=== PATIENT | male | born 1935 | race Caucasian/White ===

== ENCOUNTER 2024-04-26 16:58 | Emergency (ER) | payer OTHER ==
[~2024-04-26] VITALS: Ht 182.9 cm; Wt 118.0 kg
[2024-04-26 17:47] VITALS: BP 136/79; PULSE 72; RESP 18; O2SAT 96
--- NOTE | 2024-04-26 19:00 | ED.PDOC ---
History of Present Illness HPI Comments 88 year old male presents to the ED with chief complaint of abdominal pain. Patient reports that he has been experiencing abdominal pain, weakness, and lightheadedness for the past week with associated penile pain and chest pain about an hour ago. Patient relays that he has a Francois catheter in place that has been present for a long time, however, he has been experiencing pain to his penis and his Francois catheter has been leaking. Patient states his chest pain has since resolved, but his abdominal pain has continued. Patient denies any N/V/D, dizziness, fever, chills, or dysuria. Chief Complaint: Urinary Time Seen by MD: 18:41 Reviewed Notes: Nurses Notes, Medications, Allergies Allergies: Coded Allergies: NO KNOWN ALLERGIES (Unverified , 04/26/24) Information Source: Patient Mode of Arrival: Ambulatory Severity: Moderate Timing: Days Duration: Since onset Prehospital treatment: None Past Medical History PAST MEDICAL HISTORY: CAD, CVA, DM, High Lipids, HTN, TIA Past Medical History (Other): Agent [place] exposure Surgical History (Other): Open heart surgery Family History Family History: Reviewed,noncontributory to illness Social History Smoker: Non-Smoker Alcohol: Denies ETOH Use Drugs: Denies Drug Use Lives In: Home Constitutional: reports: weakness; denies: chills, diaphoresis, fatigue, fever, malaise, sweats, others EENTM: denies: blurred vision, double vision, ear bleeding, ear discharge, ear drainage, ear pain, ear ringing, eye pain, eye redness, hearing loss, mouth pain, mouth swelling, nasal discharge, nose bleeding, nose congestion, nose pain, photophobia, tearing, throat pain, throat swelling, voice changes, others Respiratory: denies: cough, hemoptysis, orthopnea, SOB at rest, shortness of breath, SOB with excertion, stridor, wheezing, others Cardiovascular: reports: chest pain, lightheadedness; denies: dizzy spells, diaphoresis, Dyspnea on exertion, edema, irregular heart beat, left arm pain, palpitations, PND, syncope, others Gastrointestinal: reports: abdominal pain; denies: abdomen distended, blood streaked bowels, constipated, diarrhea, dysphagia, difficulty swallowing, hematemesis, melena, nausea, poor appetite, poor fluid intake, rectal bleeding, rectal pain, vomiting, others Genitourinary: reports: pain; denies: burning, dysuria, flank pain, frequency, hematuria, incontinence, penile discharge, penile sore, testicle pain, testicle swelling, urgency, others Neurological: denies: dizziness, fainting, headache, left sided numbness, left sided weakness, numbness, paresthesia, pre-existing deficit, right sided numbness, right sided weakness, seizure, speech problems, tingling, tremors, weakness, others Musculoskeletal: denies: back pain, gout, joint pain, joint swelling, muscle pain, muscle stiffness, neck pain, others Integumetry: denies: bruises, change in color, change in hair/nails, dryness, laceration, lesions, lumps, rash, wounds, others Allergic/Immunocompromised: denies: Difficulty Healing, Frequent Infections, Hives, Itching, others Hematologic/Lymphatic: denies: anemia, blood clots, easy bleeding, easy bruising, swollen glands, others Endocrine: denies: excessive hunger, excessive sweating, excessive thirst, excessive urination, flushing, intolerance to cold, intolerance to heat, unexplained weight gain, unexplained weight loss, others Psychiatric: denies: anxiety, bipolar disorder, depression, hopeless, panic disorder, schizophrenia, sleepless, suicidal, others All Other Systems: Reviewed and Negative Physical Exam General Appearance: No Apparent Distress, Normal HEENT: Normal ENT Inspection, PERRL/EOMI Neck: Full Range of Motion, Non-Tender, Normal, Normal Inspection Respiratory: Chest Non-Tender, Lungs Clear, No Accessory Muscle Use, No Respiratory Distress, Normal Breath Sounds Cardiovascular: No Edema, No JVD, No Murmur, No Gallop, Normal Peripheral Pulses, Regular Rate/Rhythm Breast Exam: Deferred Gastrointestinal: No Organomegaly, No Pulsatile Mass, Normal Bowel Sounds, Soft, Tenderness (Suprapubic tenderness) Genitalia: Other (Francois catheter in place) Pelvic: Deferred Rectal: Deferred Extremities: No calf tenderness, Normal capillary refill, Normal inspection, Normal range of motion, Non-tender, No pedal edema Musculoskeletal : Apperance: Normal Neurologic: Alert, 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 Was a procedure done?: No Differential Dx Considerations may include: uti, constipation, renal failure, bladder outlet obstruction, francois malfunction, electrolyte disorders, colitis, sbo, pyelonephritis, renal colic, acs X-Ray, Labs, Meds, VS Vital Signs Date Time Temp Pulse Resp B/P (MAP) Pulse Ox O2 Delivery O2 Flow Rate FiO2 04/26/24 17:47 98.3 72 18 136/79 (98) 96 Time of 1ST Reevaluation: 19:41 Reevaluation 1ST: Unchanged Time of 2ND Reevaluation: 20:55 Reevaluation 2ND: eloped Patient Education/Counseling: Diagnosis, Treatment, Prognosis, Need For Follow Up Family Education/Counseling: Diagnosis, Treatment, Prognosis, Need For Follow Up Additional Information I reviewed the following notes from the pt's past medical encounters: The following tests were ordered, and results were reviewed by me: (labs, EKGS, xrays, etc) Additional information was gathered from interviewing the following independent historians: (fam, other providers, EMT) I reviewed and agreed with the following test results read by other providers: (xray, CT, US) I discussed treatments and results with medical personnel and: (consultants, fam, etc) i informed pt to wait as he would likely be admitted, when i assessed him. however, upon attempt to update pt, he had eloped Departure 1 Departure Time of Disposition: 20:56 Impression: Primary Impression: Malfunction of Francois catheter Qualified Codes: T83.011A - Breakdown (mechanical) of indwelling urethral catheter, initial encounter Additional Impressions: Abdominal pain Qualified Codes: R10.30 - Lower abdominal pain, unspecified Weakness Disposition: 07 LEFT AWOL/ELOPED Condition: Other (unknown) Critical Care Note Critical Care Time?: No Stability Stability form required: No Heart Score Heart Score: Heart Score Response (Comments) Value History N/A 0 EKG N/A 0 Age N/A 0 Risk Factors N/A 0 Troponin N/A 0 Total 0 I personally scribed for CARLOS GAN MD ([email or web address]) on 04/26/24 at 19:00. Electronically submitted by João Oliver ([email or web address]). CARLOS GAN MD Apr 26, 2024 19:00
[2024-04-26] MEDS ORDERED: fentaNYL CITRATE 100 MCG/2 ML VL IM ONE (19:30)
== END 2024-04-26 20:57 | disposition left against medical advice (07) ==
LOC: ER 16:58
DX: T83.098A Other mechanical complication of other urinary catheter, initial encounter (principal); R10.9 Unspecified abdominal pain; R53.1 Weakness
CPT/HCPCS: 99291

== ENCOUNTER 2024-05-27 05:33 | Inpatient (IN) | payer OTHER ==
[~2024-05-27] VITALS: Ht 182.9 cm; Wt 67.7 kg
--- NOTE | 2024-05-27 05:57 | ED.PDOC ---
HPI Comments 88-year-old male brought in by EMS, transferred from [facility] for non STEMI and urinary tract infection. Patient presented to [facility] complaining of generalized weakness and chest tightness. Cardiac workup showed elevated troponins and a urinary tract infection. Patient has a history of CAD status post CABG, and is followed at [facility]. Guitar Repair Technician at [facility] felt patient might require cardiac catheterization lab services, which they do not have. Patient was transferred here for Cardiology evaluation. On arrival, patient denies any chest pain, shortness a breath or other symptoms. Time Seen by MD: 05:36 Allergies: Coded Allergies: Codeine (Verified Allergy, Unknown, 05/27/24) Metformin (Verified Allergy, Unknown, 05/27/24) Past Medical History PAST MEDICAL HISTORY: CAD, CVA, DM, High Lipids, HTN, TIA Surgical History: Appendectomy, CABG Family History Family History: Reviewed,noncontributory to illness Social History Smoker: Non-Smoker Alcohol: Denies ETOH Use Drugs: Denies Drug Use Lives In: Home All Other Systems: Reviewed and Negative (Comprehensive systems review obtained and negative except for what is stated in the HPI.) Physical Exam General Appearance: No Apparent Distress HEENT: Other (Unremarkable) Neck: Full Range of Motion, Normal Inspection Respiratory: Lungs Clear, No Accessory Muscle Use, No Respiratory Distress, Normal Breath Sounds Cardiovascular: No Edema, No JVD, Regular Rate/Rhythm Breast Exam: Deferred Gastrointestinal: Non Tender, Soft Genitalia: Deferred Pelvic: Deferred Rectal: Deferred Extremities: Normal inspection, Normal range of motion, Non-tender, No pedal edema Neurologic: Alert (Oriented x4), Normal Affect, Normal Mood, Other (Moves all extremities with adequate strength and tone. No gross focal deficit.) Cerebellar Function: NOT DONE Reflexes: NOT DONE Skin: Dry, Normal Color, Warm Lymphatic: NOT DONE EKG EKG : Comments Sinus tach, rate 114, normal AL interval, QRS prolonged at 125, QTC prolonged at 499, left axis deviation, right bundle-branch block and left anterior fascicular block, upsloping ST elevation in inferior leads, anteroseptal T inversion with ST depression and other nonspecific T changes. No significant change as compared to prior EKG performed at [facility] Was a procedure done? Was a procedure done?: No CP Differential Dx Differential Diagnosis: [place], Pulmonary Embolus Differential Diagnosis: CHF Differential Diagnosis: Angina, Chest Wall Pain, Pneumonia X-Ray, Labs, Meds, VS Vital Signs Date Time Temp Pulse Resp B/P (MAP) Pulse Ox O2 Delivery O2 Flow Rate FiO2 05/27/24 05:43 97.6 114 18 152/81 (104) 99 05/27/24 05:38 114 Current Medications Medications (Trade) Dose Ordered Sig/Ok Route Start Time Stop Time Status Last Admin Sodium Chloride 1,000 ml @ 1,000 mls/hr Q1H ONCE IV 05/27/24 06:00 05/27/24 06:59 05/27/24 06:36 Ceftriaxone Sodium 50 ml @ 100 mls/hr ONCE ONCE IV 05/27/24 06:00 05/27/24 06:29 DC 05/27/24 06:37 X-Ray, Labs, Meds, VS Comment 88-year-old male with a history of CAD status post CABG, diabetes, hypertension, hyperlipidemia, CKD and CVA transfer from [facility] with a complaint of generalized weakness and chest tightness, found to have a UTI and elevated troponins consistent with non STEMI. Vitals remarkable for heart rate 114 Exam unremarkable except for tachycardia CBC, basic metabolic panel, lactate, UA, BNP and troponins pending Patient was treated with aspirin 325 mg p.o., a 500 cc normal saline IV bolus, and Rocephin 1 g IV at [facility]. Patient treated with the following in our ED: I discussed the case with Dr. Alberts on-call for STEMI. He reviewed the EKG from [facility], as well as our EKG. He did not feel that the current case represents a STEMI, and recommended medical management. 1 L 0.9 normal saline IV bolus, Rocephin 1 g IV Plan is to admit the patient for serial troponins and Cardiology evaluation, as well as IV antibiotics. Time of 1ST Reevaluation: 05:55 Reevaluation 1ST: Unchanged Patient Education/Counseling: Diagnosis, Treatment Family Education/Counseling: No Family Present Departure 1 Departure Time of Disposition: 05:55 Impression: Primary Impression: NSTEMI (non-ST elevated myocardial infarction) Additional Impression: UTI (urinary tract infection) Qualified Codes: N39.0 - Urinary tract infection, site not specified Disposition: 09 ADMITTED INPATIENT Admit to: Tele Condition: Guarded Critical Care Note Critical Care Time?: No Stability Stability form required: No Heart Score Heart Score: Heart Score Response (Comments) Value History Slightly Suspicious [address]-Deviation 2 Age >65 2 Risk Factors >3 or Hx ASHD 2 Troponin 1-2 x's Normal limit 1 Total 7 MARIAH BEASLEY MD May 27, 2024 05:56
--- NOTE | 2024-05-27 06:16 | DVH ---
CHEST RADIOGRAPH Indication: Nstemi Technique: Single frontal view of the chest was obtained Comparison: None FINDINGS: Lines and Tubes: None Lungs: Right apical density. 1.6 cm nodular density in the left midlung. Pleura: No effusion. Left-sided skin fold. No pneumothorax. Cardiomediastinal contours: Unremarkable Bones: No acute osseous abnormality. IMPRESSION: 1. Right apical density which consolidation or mass are not excluded. 1.6 cm left mid lung zone nodul ar density. Noncontrast chest CT recommended for further evaluation.
[2024-05-27] MEDS: SODIUM CHLORIDE 0.9% 1,000 ML IV ONE (06:36)
[2024-05-27] MEDS: cefTRIAXone 1GM/50ML D5W 50 ML IV ONE (06:37)
--- NOTE | 2024-05-27 07:12 | ECG ---
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
[2024-05-27 08:07] LABS: Urine Bacteria MANY /hpf (None Seen); Urine Blood 3+ /uL (Negative); Urine Protein, UAD 2+ (Negative); Urine Specific Gravity 1.019 (1.001-1.035); Urine Squamous Epithelial Cell None Seen /hpf (<5); Urine Urobilinogen Normal (Negative); Urine WBC 2576 /hpf (0 - 3); Urine WBC Clumps PRESENT /hpf (None Seen); Urine pH 5.5 (5.0-9.0)
[2024-05-27 08:09] LABS: Urine Clarity Cloudy (Clear); Urine Color Red (Yellow)
[2024-05-27 08:13] LABS: Chloride 103 mmol/L (98-107); Potassium 4.3 mmol/L (3.5-5.1); Sodium 137 mmol/L (136-145)
[2024-05-27 08:14] LABS: Anion Gap 10 (5-15); Carbon Dioxide 24 mmol/L (20-31)
[2024-05-27 08:15] LABS: Calcium 9.6 mg/dL (8.7-10.4)
[2024-05-27 08:20] LABS: BUN/Creatinine Ratio 19.1 (10.0-20.0)
[2024-05-27 08:26] LABS: Blood Urea Nitrogen 33 mg/dL (9-23); Glucose 282 mg/dL (74-106); Lactic Acid w/Reflex 2.3 mmol/L (0.4-2.0)
[2024-05-27 08:30] LABS: Basophils # (auto) 0 10 ^3/uL (0-0.2); Basophils % (auto) 0.1 % (0.0-2.0); Eosinophils # (auto) 0 10 ^3/uL (0-0.8); Hematocrit 42.2 % (41.0-53.0); Hemoglobin 14.3 g/dL (13.5-17.5); Lymphocytes # (auto) 1.6 10 ^3/uL (0.4-5.4); Lymphocytes % (auto) 10.8 % (10.0-50.0); Mean Corpuscular Hemoglobin 31.1 pg (28.0-32.0); Mean Corpuscular Hgb Conc. 33.9 g/dL (32.0-36.0); Mean Corpuscular Volume 91.8 fL (80.0-100.0); Monocytes # (auto) 1.2 10 ^3/uL (0-1.3); Monocytes % (auto) 8.5 % (0.0-12.0); Neutrophils # (auto) 11.6 10 ^3/uL (1.6-8.6); Neutrophils % (auto) 80.6 % (37.0-80.0); Platelet Count (auto) 336 10^3/uL (140-450); Red Cell Distribution Width 13.1 % (11.8-14.3); White Blood Cell 14.4 10^3/uL (4.4-10.8)
[2024-05-27 09:07] VITALS: PULSE 92; RESP 18; O2SAT 97
[2024-05-27 13:42] LABS: Cholesterol 161 mg/dL (< 200)
[2024-05-27 13:46] LABS: HDL Cholesterol 30 mg/dL (40-59); LDL Cholesterol 101 mg/dL (< 100); Triglycerides 178 mg/dL (< 150)
[2024-05-27 13:53] LABS: Amphetamine Screen, Urine Neg (NEGATIVE); Barbiturate Scree,Urine Neg (NEGATIVE); Benzodiazephine Screen, Urine Neg (NEGATIVE); Cannabinoid Screen, Urine Neg (NEGATIVE); Cocaine Screen, Urine Neg (NEGATIVE); Opiate Scree,Urine Neg (NEGATIVE); Phencyclidine Screen, Urine Neg (NEGATIVE)
--- NOTE | 2024-05-27 13:53 | DVH ---
Procedure: CT CHEST WITHOUT CONTRAST Reason for study/Clinical History: nodule Comparison Study: None available at time of dictation. Exam Date: 05/27/2024 01:14 PM TECHNIQUE: Multidetector CT of the chest was performed from the lung apices to the upper abdomen with out the use of intravenous contract. Axial, coronal and sagittal multiplanar reformats were performed . Radiation Dose Information: CT Dose: CTDI volume is 12.49 mGy. Dose-length product is 423.13 mGy*cm The dose indicators for CT are the volume Computed Tomography (CT) Dose Index (CTDIvol) and the Dose Length Product (DLP), and are measured in units of mGy and mGy-cm, respectively. These indicators are not patient dose, but values generated from the CT scanner acquisition factors. The report includes radiation exposure data for exposures received during this examination. FINDINGS: Lower neck: Normal thyroid. Lungs: No focal consolidation, pleural effusion or pneumothorax. Heart/Vascular Structures: Cardiomegaly. Coronary artery calcifications. Vascular calcifications of t he aorta. Ectasia of the ascending thoracic aorta measures 4.7 cm. Lymph Nodes: No adenopathy Pleura: No pleural effusion or significant pneumothorax. Musculoskeletal: No acute osseous abnormality. Median sternotomy. Soft tissues: Normal. Upper abdomen: Limited portions of the upper abdomen are unremarkable. IMPRESSION: No acute intrathoracic abnormality. Radiation optimization: All CT scans at this facility use at least one of these dose optimization caridad hniques: automated exposure control mA and/or kV adjustment per patient size (includes targeted exam s where dose is matched to clinical indication) or iterative reconstruction.
[2024-05-27] MEDS ORDERED: DEXTROSE (50%) 50ML SYRG IV PRN (14:15)
[2024-05-27] MEDS ORDERED: NITROGLYCERIN 0.4 MG SL TAB SL PRN (14:15)
--- NOTE | 2024-05-27 14:24 | DVHHP2 ---
History of Present Illness Reason for Visit: Chest pain and weakness History of Present Illness Ben Mack is an 88-year-old male with past medical history of CAD status post CABG couple months ago at [facility] per patient reports, diabetes, CKD 3, and coronary stent who presents to the ED as a transfer from [place] for weakness, elevated troponins, NSTEMI, sepsis, and chest pain. Patient reports that he uses oxygen on and off at home. Patient also reports that he has no medications that he takes. Patient also reports that he had stents placed at [facility] couple of months ago but is not taking any anti coags. Patient currently chest pain at this time, denies shortness of breath, fever, chills, abdominal pain, nausea, vomiting, diarrhea, lightheadedness, and dizziness. Patient also denies using any DME for ambulation. Cardiovascular: CAD Renal/: Chronic renal failure Endocrine: Diabetes Past Surgical History: CABG Family History: Other (Per patient both parents unknown disease) Smoke: No ALCOHOL: none Drugs: None Lives: with Family Domestic Violence: Neg Review of Systems Constitutional: Yes: Weakness; No: Fever, Chills, Sweats, Malaise, Other Eyes: No: Pain, Vision change, Conjunctivae inflammation, Eyelid inflammation, Other, Redness ENT: No: Ear pain, Ear discharge, Nose pain, Nose discharge, Nose congestion, Mouth pain, Mouth swelling, Throat pain, Throat swelling, Other Respiratory: No: Cough, Dry, Shortness of breath, SOB with excertion, Wheezing, Hemoptysis, Pleuritic Pain, Sputum, Wheezing, Other Cardiovascular: Chest Pain; No: Palpitations, Orthopnea, Paroxysmal Noc. Dy spnea, Edema, Lt Headedness, Other Gastrointestinal: No: Nausea, Vomiting, Abdominal Pain, Diarrhea, Constipation, Melena, Hematochezia, Other Genitourinary: No Dysuria, No Frequency, No Incontinence, No Hematuria, No Retention, No Other Musculoskeletal: No: other, neck pain, shoulder pain, arm pain, back pain, hand pain, leg pain, foot pain Skin: No: Rash, Lesions, Jaundice, Bruising, Other Neurological: No: Weakness, Numbness, Incoordination, Change in speech, Confusion, Seizures, Other Allergies: Coded Allergies: Codeine (Verified Allergy, Unknown, 05/27/24) Metformin (Verified Allergy, Unknown, 05/27/24) Exam Vital Signs Vital Signs Date Time Temp Pulse Resp B/P (MAP) Pulse Ox O2 Delivery O2 Flow Rate FiO2 05/27/24 13:28 80 18 148/96 (113) 98 05/27/24 09:07 Room Air* 2 N/A Nasal Cannula* 05/27/24 08:16 98.1 98.1 General Appearance: Alert, Oriented X3, Cooperative, No acute distress HEENT: Atraumatic, PERRLA, EOMI, Mucous membr. moist/pink Respiratory: Clear to auscultation, Normal air movement Cardiovascular: Regular rate, Normal S1, Normal S2, No murmurs Abdominal: Normal bowel sounds, Soft, No tenderness, No hepatospenomegaly, No masses Extremities: No clubbing, No cyanosis, No edema, Normal pulses, No tenderness/swelling Skin: No rashes, No breakdown, No significant lesion Neuro: Normal speech, Normal tone, Sensation intact Psych/Mental Status: Mental status NL, Mood NL Labs/Xrays Labs Test 05/27/24 09:55 05/27/24 06:20 05/27/24 06:03 Range/Units Lactic Acid Level 1.4 0.4-2.0 mmol/L Troponin I High Sensitivity 89 *H </=54 ng/L White Blood Count 14.4 H 4.4-10.8 10^3/uL Red Blood Count 4.60 4.5-5.90 10^6/uL Hemoglobin 14.3 13.5-17.5 g/dL Hematocrit 42.2 41.0-53.0 % Mean Corpuscular Volume 91.8 80.0-100.0 fL Mean Corpuscular Hemoglobin 31.1 28.0-32.0 pg Mean Corpuscular Hemoglobin Concent 33.9 32.0-36.0 g/dL Red Cell Distribution Width 13.1 11.8-14.3 % Platelet Count 336 140-450 10^3/uL Mean Platelet Volume 7.5 6.9-10.8 fL Neutrophils (%) (Auto) 80.6 H 37.0-80.0 % Lymphocytes (%) (Auto) 10.8 10.0-50.0 % Monocytes (%) (Auto) 8.5 0.0-12.0 % Eosinophils (%) (Auto) 0.0 0.0-7.0 % Basophils (%) (Auto) 0.1 0.0-2.0 % Neutrophils # (Auto) 11.6 H 1.6-8.6 10 ^3/uL Lymphocytes # (Auto) 1.6 0.4-5.4 10 ^3/uL Monocytes # (Auto) 1.2 0-1.3 10 ^3/uL Eosinophils # (Auto) 0 0-0.8 10 ^3/uL Basophils # (Auto) 0 0-0.2 10 ^3/uL Nucleated Red Blood Cells 0.0 % Sodium Level 137 136-145 mmol/L Potassium Level 4.3 3.5-5.1 mmol/L Chloride Level 103 98-107 mmol/L Carbon Dioxide Level 24 20-31 mmol/L Anion Gap 10 5-15 Blood Urea Nitrogen 33 H 9-23 mg/dL Creatinine 1.73 H 0.700-1.30 mg/dL Glomerular Filtration Rate Calc 38 >90 mL/min BUN/Creatinine Ratio 19.1 10.0-20.0 Serum Glucose 282 H 74-106 mg/dL Calcium Level 9.6 8.7-10.4 mg/dL B-Type Natriuretic Peptide 101.66 0-100 pg/mL Triglycerides Level 178 H < 150 mg/dL Cholesterol Level 161 < 200 mg/dL LDL Cholesterol 101 H < 100 mg/dL HDL Cholesterol 30 L 40-59 mg/dL Urine Color Red H Yellow Urine Clarity Cloudy H Clear Urine pH 5.5 5.0-9.0 Urine Specific [place] 1.019 1.001-1.035 Urine Protein 2+ H Negative Urine Ketones Negative Negative Urine Blood 3+ H Negative /uL Urine Nitrite Negative Negative Urine Bilirubin Negative Negative Urine Urobilinogen Normal Negative mg/dL Urine Leukocyte Esterase 3+ Negative /uL Urine RBC 2110 0 - 3 /hpf Urine WBC 2576 0 - 3 /hpf Urine WBC Clumps Present None Seen /hpf Urine Squamous Epithelial Cells None seen <5 /hpf Urine Bacteria Many H None Seen /hpf Urine Glucose Trace Normal mg/dL Urine Opiates Screen Neg NEGATIVE Urine Fentanyl Screen Neg NEGATIVE Urine Barbiturates Screen Neg NEGATIVE Urine Phencyclidine Screen Neg NEGATIVE Urine Amphetamines Screen Neg NEGATIVE Urine Benzodiazepines Screen Neg NEGATIVE Urine Cocaine Screen Neg NEGATIVE Urine Cannabinoids Screen Neg NEGATIVE Procedure: CT CHEST WITHOUT CONTRAST Reason for study/Clinical History: nodule Comparison Study: None available at time of dictation. Exam Date: 05/27/2024 01:14 PM TECHNIQUE: Multidetector CT of the chest was performed from the lung apices to the upper abdomen without the use of intravenous contract. Axial, coronal and sagittal multiplanar reformats were performed. Radiation Dose Information: CT Dose: CTDI volume is 12.49 mGy. Dose-length product is 423.13 mGy*cm The dose indicators for CT are the volume Computed Tomography (CT) Dose Index (CTDIvol) and the Dose Length Product (DLP), and are measured in units of mGy and mGy-cm, respectively. These indicators are not patient dose, but values generated from the CT scanner acquisition factors. The report includes radiation exposure data for exposures received during this examination. FINDINGS: Lower neck: Normal thyroid. Lungs: No focal consolidation, pleural effusion or pneumothorax. Heart/Vascular Structures: Cardiomegaly. Coronary artery calcifications. Vascular calcifications of the aorta. Ectasia of the ascending thoracic aorta measures 4.7 cm. Lymph Nodes: No adenopathy Pleura: No pleural effusion or significant pneumothorax. Musculoskeletal: No acute osseous abnormality. Median sternotomy. Soft tissues: Normal. Upper abdomen: Limited portions of the upper abdomen are unremarkable. IMPRESSION: No acute intrathoracic abnormality. CHEST RADIOGRAPH Indication: Nstemi Technique: Single frontal view of the chest was obtained Comparison: None FINDINGS: Lines and Tubes: None Lungs: Right apical density. 1.6 cm nodular density in the left midlung. Pleura: No effusion. Left-sided skin fold. No pneumothorax. Cardiomediastinal contours: Unremarkable Bones: No acute osseous abnormality. IMPRESSION: 1. Right apical density which consolidation or mass are not excluded. 1.6 cm left mid lung zone nodular density. Noncontrast chest CT recommended for further evaluation. Assessment/Plan Assessment/Plan Assessment/Plan: Atypical chest pain r/o ACS Coronary stent-patient reports placed in at [facility] couple of months ago Leukocytosis likely secondary to sepsis UTI ACS protocol Aspirin Statin [place] UA Chest x-ray Pat catheterization IV antibiotics-ceftriaxone NS Troponin Blood cultures Lactic acid EKG BNP Echo TSH Lipid UDS Labs A.m. labs CT chest noted Cardiology consult - recent stent Right apical density which consolidation or mass are not excluded. 1.6 cm left mid lung zone nodular density. Follow up outpatient with PCP Diabetes uncontrolled Hemoglobin A1c ISS and Accu-Cheks FEN/PPX cardiac diet IV fluids DVT prophylaxis-Lovenox PUD prophylaxis-not indicated no history of GERD or GI bleed Patient reports no home medications to reconcile discussed plan of care with patient and nurse Admit to tele Plan discussed with: Patient My Orders Orders - LORRIE BHAT Procedure Category Date Status Time Echo 2d Mode Cardiac US 05/27/24 Logged DOP 12:50 Thyroid Stimulating LAB 05/27/24 In Process Hormone 12:[address] 05/27/24 Resulted 13:07 Date of Service: May 27, 2024 Billing Provider: LORRIE BHAT Common Visit Codes: [id number] INP/OBS CARE (HIGH) LORRIE BHAT May 27, 2024 14:24
[2024-05-27] MEDS: ASPirin 81 mg TAB PO SCH (14:27)
[2024-05-27] MEDS: SODIUM CHLORIDE 0.9% 1,000 ML IV SCH (14:29)
[2024-05-27] MEDS: ACCU-CHEK COMFORT CURVE STRIP VI SCH (17:11)
[2024-05-27] MEDS: InsuLIN REG 1unit/0.01ml Soln (100units/ml) SC SCH (17:12)
[2024-05-27 19:20] VITALS: PULSE 103; RESP 17; O2SAT 98
--- NOTE | 2024-05-27 19:45 | DVHSR ---
APPROVED REPORT EXAM: LIMITED Two-dimensional and M-mode echocardiogram with Doppler and color Doppler. Blood Pressure: 126/78 mmHg INDICATION Chest Pain RISK FACTORS Height: 6'0, Weight: 170 DIMENSIONS LVDd3.6 (3.8-5.7cm)LA (2D) (1.9-4.0cm)Aortic Root3.6 (2.0-3.7cm) LVDs2.6 (2.5-4.0cm)LA (MM) (1.9-4.0cm)Aortic Cusp Exc1.6 (1.5-2.0cm) EF (%) 55.0 (55-70%)Rt. Atrium (1.9-4.0cm)Asc. 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
[2024-05-27] MEDS: MORPHINE SULFATE INJ 2 MG/ml SYRG IV PRN (19:58)
[2024-05-27] MEDS: ONDANSETRON HCL 4 MG/2 ML VIAL IV PRN (19:59)
[2024-05-27] MEDS: ATORVASTATIN 20 MG TAB PO SCH (22:00)
[2024-05-27] MEDS: ACETAMINOPHEN 325 MG TAB PO PRN (22:25)
[2024-05-28] MEDS: NITROGLYCERIN 0.4 MG SL TAB SL PRN ×2 (00:01→20:03)
[2024-05-28 04:20] LABS: Basophils # (auto) 0 10 ^3/uL (0-0.2); Basophils % (auto) 0.1 % (0.0-2.0); Eosinophils # (auto) 0 10 ^3/uL (0-0.8); Eosinophils % (auto) 0.3 % (0.0-7.0); Hematocrit 37.6 % (41.0-53.0); Hemoglobin 12.9 g/dL (13.5-17.5); Lymphocytes # (auto) 2.5 10 ^3/uL (0.4-5.4); Mean Corpuscular Hemoglobin 31.3 pg (28.0-32.0); Mean Corpuscular Hgb Conc. 34.2 g/dL (32.0-36.0); Mean Corpuscular Volume 91.6 fL (80.0-100.0); Monocytes # (auto) 1.4 10 ^3/uL (0-1.3); Monocytes % (auto) 9.9 % (0.0-12.0); Neutrophils # (auto) 9.9 10 ^3/uL (1.6-8.6); Neutrophils % (auto) 71.7 % (37.0-80.0); Platelet Count (auto) 287 10^3/uL (140-450); Red Cell Distribution Width 12.7 % (11.8-14.3); White Blood Cell 13.9 10^3/uL (4.4-10.8)
[2024-05-28 04:47] LABS: Alanine Aminotransferase < 9 U/L (7-40); Albumin 3.3 g/dL (3.2-4.8); Alkaline Phosphatase 84 U/L (46-116); Anion Gap 6 (5-15); Aspartate Aminotransferase 11 U/L (13-40); BUN/Creatinine Ratio 18.2 (10.0-20.0); Blood Urea Nitrogen 26 mg/dL (9-23); Calcium 8.2 mg/dL (8.7-10.4); Carbon Dioxide 27 mmol/L (20-31); Chloride 107 mmol/L (98-107); Glucose 155 mg/dL (74-106); Potassium 3.4 mmol/L (3.5-5.1); Sodium 140 mmol/L (136-145)
[2024-05-28 04:48] LABS: Total Protein 6.2 g/dL (5.7-8.2)
--- NOTE | 2024-05-28 05:45 | DVH ---
CHEST RADIOGRAPH Indication: CHEST PAIN Technique: Single frontal view of the chest was obtained Comparison: XY CHEST PORTABLE on DOS: 05/27/24 IMPRESSION: Heart appears normal in size. The aorta appears tortuous. There are median sternotomy wires. Nodular densities in the left lung are redemonstrated, possibly granulomas. The lungs appear clear without focal airspace opacity, effusion, or pneumothorax
[2024-05-28 07:35] VITALS: PULSE 96; RESP 16; O2SAT 99
[2024-05-28] MEDS: cefTRIAXone 1GM/50ML D5W 50 ML IV SCH (10:25)
[2024-05-28] MEDS: SODIUM CHLORIDE 0.9% 500 ML IV ONE (12:30)
[2024-05-28] MEDS: IOHEXOL 350 MG/ML 100ML IJ ONE (12:37)
--- NOTE | 2024-05-28 13:20 | DVH ---
History: ro pe Comparison: None TECHNIQUE: Using a slice CT scanner volumetric data acquisition of chest, abdomen and pelvis was obta ined following intravenous administration of intravenous 100 ml contrast without any reported adverse effects. Axial images were reconstructed and additional sagittal and coronal images were reformatted . 3D/MIP images were performed and reviewed for reporting. Radiation dose Information: CT Dose: CTDI volume is 8.36 mGy. Dose-length product is 266.99 mGy*cm Findings: Normal appearance to the pulmonary arteries. No pulmonary emboli. Ectasia of the ascending aorta with vascular calcification. No aortic dissection. No consolidation. No pleural effusions. Mild COPD. Nor mal heart size. 1. Impression: 2. No pulmonary emboli 3. No aortic dissection 4. Ectasia of the ascending aorta without dissection. 5. No consolidation.
[2024-05-28 15:20] LABS: Rapid Influenza A Negative (Negative); Rapid Influenza B Negative (Negative)
[2024-05-28 15:21] LABS: COVID19 ANTIGEN SOFIA FIA NEGATIVE (NEGATIVE)
[2024-05-28 15:23] VITALS: BP 122/81; PULSE 84; RESP 18; TEMP 97.6; O2SAT 98
[2024-05-28] MEDS ORDERED: IPRATROPIUM BROM 0.5 MG/2.5ML INH SOL NEB PRN (15:45)
[2024-05-28] MEDS ORDERED: ALBUTEROL SULF 2.5 MG/0.5ML(0.5%) NEB SOLN NEB PRN (15:45)
--- NOTE | 2024-05-28 15:45 | DVHPN2 ---
Assessment/Plan Assessment/Plan Progress note Subjective 88 M with CAD s/p CABG (years) and BRAULIO (months) CKD admitted after transfer from [facility] for NSTEMI. Seen by me today during rounds Increased WOB w/o desat, tachy, on 2LNC. no active CP Objective Physical exam alert oriented x3 on nasal canula s1 s2 RRR systolic murmur mild rhonchi abdomen soft nontender trace LE edema Assessment and plan acute on chronic hypoxic respiratory failure PNA GN vs GP? viral? CAD s/p CABG and BRAULIO not sure when Possible baseline mild dementia COPD e on home o2 type 2 [place] 2/2 PNA CKD 3 anemia chronic disease chronic diastolic heart failure PH? r/o PE keep spo2> 92% albuterol ipatropium prednisone ceft azithro iron panel Diet cardiac DVT ppx lovenox Plan discussed with: Patient My Orders Orders - MELE GALICIA MD Procedure Category Date Status Time Ct Angio Chest CT 05/28/24 Resulted Contrast 12:16 Acetaminophen Tablet PHA 05/28/24 In Process (Tylenol Tablet) 14:00 Magnesium LAB 05/29/24 Verified 04:00 Phosphorus LAB 05/29/24 Verified 04:00 Complete Blood Count LAB 05/29/24 Verified 04:00 Comprehensive LAB 05/29/24 Verified Metabolic Panel 04:00 Mrsa Screen SYMONE 05/28/24 In Process 12:28 Date of Service: May 28, 2024 Billing Provider: MELE GALICIA MD Common Visit Codes: [id number] INP/OBS CARE(HIGH) MELE GALICIA MD May 28, 2024 15:45
[2024-05-28] MEDS: predniSONE 20 MG TAB PO ONE (16:50)
[2024-05-28 19:39] VITALS: O2SAT 98
[2024-05-28] MEDS ORDERED: MORPHINE SULFATE INJ 2 MG/ml SYRG IV PRN (19:45)
[2024-05-28 20:00] VITALS: PULSE 78; PULSE 80; RESP 16; O2SAT 99
[2024-05-28 21:00] VITALS: BP 148/89; PULSE 80; RESP 16; TEMP 97.7; O2SAT 99
[2024-05-28 21:21] VITALS: BP 149/87; PULSE 84; RESP 18; TEMP 97.6; O2SAT 98
[2024-05-28] MEDS: ACETAMINOPHEN 325 MG TAB PO SCH (22:00)
[2024-05-29] VITALS (10 sets, daily range): BP systolic 121–187; BP diastolic 76–91; PULSE 81–101; RESP 16–28; TEMP 97.4–98.2; O2SAT 98–100
[2024-05-29] MEDS ORDERED: hydrOXYzine 25 MG TAB or CAP PO PRN (09:00)
[2024-05-29] MEDS: predniSONE 20 MG TAB PO SCH (09:25)
[2024-05-29] MEDS: ENOXAPARIN SOD 40 MG/0.4 ML SYRINGE SC SCH (09:25)
[2024-05-29] MEDS: amLODIPine BESYLATE 5 MG TAB PO SCH (10:36)
[2024-05-29] MEDS: METOPROLOL TARTRATE 1MG/1ML-5ML VIAL IV ONE (10:44)
[2024-05-29 11:34] LABS: Basophils # (auto) 0 10 ^3/uL (0-0.2); Basophils % (auto) 0.1 % (0.0-2.0); Eosinophils # (auto) 0.1 10 ^3/uL (0-0.8); Eosinophils % (auto) 0.5 % (0.0-7.0); Hematocrit 39.9 % (41.0-53.0); Hemoglobin 13.4 g/dL (13.5-17.5); Lymphocytes % (auto) 11.3 % (10.0-50.0); Mean Corpuscular Hemoglobin 31.3 pg (28.0-32.0); Mean Corpuscular Hgb Conc. 33.6 g/dL (32.0-36.0); Mean Corpuscular Volume 93.2 fL (80.0-100.0); Monocytes # (auto) 1.1 10 ^3/uL (0-1.3); Monocytes % (auto) 6.4 % (0.0-12.0); Neutrophils # (auto) 14.3 10 ^3/uL (1.6-8.6); Neutrophils % (auto) 81.7 % (37.0-80.0); Platelet Count (auto) 292 10^3/uL (140-450); Red Blood Cells 4.28 10^6/uL (4.5-5.90); Red Cell Distribution Width 12.8 % (11.8-14.3); White Blood Cell 17.5 10^3/uL (4.4-10.8)
[2024-05-29 11:42] LABS: Alkaline Phosphatase 93 U/L (46-116); Anion Gap 15 (5-15); Aspartate Aminotransferase 14 U/L (13-40); Chloride 103 mmol/L (98-107); Sodium 138 mmol/L (136-145)
[2024-05-29 11:43] LABS: Albumin 3.3 g/dL (3.2-4.8); BUN/Creatinine Ratio 14.5 (10.0-20.0); Blood Urea Nitrogen 18 mg/dL (9-23)
[2024-05-29 11:44] LABS: Alanine Aminotransferase < 9 U/L (7-40); Calcium 8.3 mg/dL (8.7-10.4); Carbon Dioxide 20 mmol/L (20-31); Glucose 218 mg/dL (74-106); Magnesium 1.4 mg/dL (1.6-2.6)
[2024-05-29 11:45] LABS: Bilirubin, Total 0.8 mg/dL (0.2-1.0); Phosphorus 2.7 mg/dL (2.4-5.1); Total Protein 6.5 g/dL (5.7-8.2)
[2024-05-29] MEDS: METOPROLOL TARTRATE 1MG/1ML-5ML VIAL IV SCH (13:24)
--- NOTE | 2024-05-29 19:29 | DVHPN2 ---
Assessment/Plan Assessment/Plan Progress note Subjective 88 M with CAD s/p CABG (years) and BRAULIO (months) CKD admitted after transfer from [place] for NSTEMI. Seen by me today during rounds started on metop iv by cardio, WOB improved, oral trush, start nystatin swallow, send HIV Objective Physical exam alert oriented x3 on nasal canula s1 s2 RRR systolic murmur mild rhonchi abdomen soft nontender trace LE edema Assessment and plan acute on chronic hypoxic respiratory failure PNA GN vs GP? viral? CAD s/p CABG and BRAULIO not sure when Possible baseline mild dementia COPD e on home o2 type 2 [place] 2/2 PNA CKD 3 anemia chronic disease chronic diastolic heart failure PH? oral trush? pe rulewd out keep spo2> 92% albuterol ipatropium prednisone ceft azithro atarax for anxiety send hiv nystatin swish and swallow Diet cardiac DVT ppx lovenox Plan discussed with: Patient My Orders Orders - MELE GALICIA MD Procedure Category Date Status Time Amlodipine Tablet PHA 05/29/24 In Process (Norvasc Tablet) 10:00 Hydroxyzine Oral PHA 05/29/24 In Process (Vistaril Oral) 09:00 Cleanse Wound With ALEJANDRINA 05/29/24 In Process Mild Soap A 14:07 Hiv 1&2 Antibody LAB 05/30/24 Verified 04:00 Basic Metabolic Panel LAB 05/30/24 Verified 04:00 Complete Blood Count LAB 05/30/24 Verified 04:00 Nystatin PHA 05/29/24 Logged (Mouth-Throat) 22:00 Date of Service: May 29, 2024 Billing Provider: MELE GALICIA MD Common Visit Codes: [id number] INP/OBS CARE(HIGH) MELE GALICIA MD May 29, 2024 19:29
[2024-05-29] MEDS: NYSTATIN (MOUTH-THROAT) 500,000 UNITS/5 ML SUSP MT SCH (22:24)
--- NOTE | 2024-05-29 23:19 | DVHINCON2 ---
Date of service: May 29, 2024 Referring Physician Van Reason for Consultation Recent stent placement and chest pain History of Present Illness This is an 88-year-old male with a PMH of CAD, CVA, DM, High Lipids, HTN, TIA who was transferred here from [facility] for higher level of care for NSTEMI and a urinary tract infection. Patient presented to [facility] complaining of generalized weakness and chest tightness. Cardiac workup showed elevated troponins and a urinary tract infection. Patient has a history of CAD status post CABG, and is followed at [place]. The in classroom tutor at [place] felt patient might require cardiac catheterization lab services, which they do not have. Patient was transferred here for Cardiology evaluation. On arrival, patient denies any chest pain, shortness a breath or other symptoms. Chest x-ray shows right apical density which consolidation or mass are not excluded. 1.6 cm left mid lung zone nodular density. EKG: Tachycardia at 114. Patient was admitted to the hospital. I am asked to consult on this patient. Family History: Patient reports no known family medical history. Allergies: Coded Allergies: Codeine (Verified Allergy, Unknown, 05/27/24) Metformin (Verified Allergy, Unknown, 05/27/24) Current Medications Current Medications Medications (Trade) Dose Ordered Sig/Ok Route PRN Reason Start Time Stop Time Status Last Admin Enoxaparin Sodium (Lovenox) 40 mg DAILY SC 05/29/24 10:00 05/29/24 09:25 Prednisone 40 mg DAILY PO 05/29/24 10:00 Amlodipine Besylate (Norvasc Tablet) 10 mg DAILY PO 05/29/24 10:00 05/29/24 10:36 Hydroxyzine Pamoate (Vistaril Oral) 25 mg Q6HP PRN PO FOR ITCHING 05/29/24 09:00 Metoprolol Tartrate (Lopressor) 5 mg Q6HR IV 05/29/24 12:00 05/29/24 17:34 Nystatin (Mycostatin (Mouth-Throat)) 5 ml QID MT 05/29/24 22:00 Review of Systems Constitutional: Yes: Weakness; No: Fever, Chills, Sweats, Malaise, Other Eyes: No: Pain, Vision change, Conjunctivae inflammation, Eyelid inflammation, Other, Redness ENT: No: Ear pain, Ear discharge, Nose pain, Nose discharge, Nose congestion, Mouth pain, Mouth swelling, Throat pain, Throat swelling, Other Respiratory: No: Cough, Dry, Shortness of breath, SOB with excertion, Wheezing, Hemoptysis, Pleuritic Pain, Sputum, Wheezing, Other Cardiovascular: Chest Pain; No: Palpitations, Orthopnea, Paroxysmal Noc. Dyspnea, Edema, Lt Headedness, Other Gastrointestinal: No: Nausea, Vomiting, Abdominal Pain, Diarrhea, Constipation, Melena, Hematochezia, Other Genitourinary: No Dysuria, No Frequency, No Incontinence, No Hematuria, No Retention, No Other Musculoskeletal: No: other, neck pain, shoulder pain, arm pain, back pain, hand pain, leg pain, foot pain Skin: No: Rash, Lesions, Jaundice, Bruising, Other Neurological: No: Weakness, Numbness, Incoordination, Change in speech, Confusion, Seizures, Other Vital Signs Vital Signs Date Time Temp Pulse Resp B/P (MAP) Pulse Ox O2 Delivery O2 Flow Rate FiO2 05/29/24 18:25 89 121/74 05/29/24 17:00 98.2 28 98 98.2 05/29/24 10:00 Nasal Cannula* 2 28 Physical Exam GENERAL: Awake, alert, oriented. LUNGS: Clear. CARDIOVASCULAR: Heart sounds are good. ABDOMEN: Soft. Labs/Diagnostic Data Labs Test 05/29/24 10:30 05/29/24 06:33 05/28/24 13:36 05/27/24 09:55 Range/Units White Blood Count 17.5 #H 4.4-10.8 10^3/uL Red Blood Count 4.28 L 4.5-5.90 10^6/uL Hemoglobin 13.4 L 13.5-17.5 g/dL Hematocrit 39.9 L 41.0-53.0 % Mean Corpuscular Volume 93.2 80.0-100.0 fL Mean Corpuscular Hemoglobin 31.3 28.0-32.0 pg Mean Corpuscular Hemoglobin Concent 33.6 32.0-36.0 g/dL Red Cell Distribution Width 12.8 11.8-14.3 % Platelet Count 292 140-450 10^3/uL Mean Platelet Volume 7.7 6.9-10.8 fL Neutrophils (%) (Auto) 81.7 H 37.0-80.0 % Lymphocytes (%) (Auto) 11.3 10.0-50.0 % Monocytes (%) (Auto) 6.4 0.0-12.0 % Eosinophils (%) (Auto) 0.5 0.0-7.0 % Basophils (%) (Auto) 0.1 0.0-2.0 % Neutrophils # (Auto) 14.3 H 1.6-8.6 10 ^3/uL Lymphocytes # (Auto) 2.0 0.4-5.4 10 ^3/uL Monocytes # (Auto) 1.1 0-1.3 10 ^3/uL Eosinophils # (Auto) 0.1 0-0.8 10 ^3/uL Basophils # (Auto) 0 0-0.2 10 ^3/uL Nucleated Red Blood Cells 0.0 % Sodium Level 138 136-145 mmol/L Potassium Level 3.0 L 3.5-5.1 mmol/L Chloride Level 103 98-107 mmol/L Carbon Dioxide Level 20 20-31 mmol/L Anion Gap 15 5-15 Blood Urea Nitrogen 18 9-23 mg/dL Creatinine 1.24 0.700-1.30 mg/dL Glomerular Filtration Rate Calc 57 >90 mL/min BUN/Creatinine Ratio 14.5 10.0-20.0 Serum Glucose 218 H 74-106 mg/dL Calcium Level 8.3 L 8.7-10.4 mg/dL Phosphorus Level 2.7 2.4-5.1 mg/dL Magnesium Level 1.4 L 1.6-2.6 mg/dL Total Bilirubin 0.8 0.2-1.0 mg/dL Aspartate Amino Transferase (AST) 14 13-40 U/L Alanine Aminotransferase (ALT) < 9 7-40 U/L Alkaline Phosphatase 93 46-116 U/L Total Protein 6.5 5.7-8.2 g/dL Albumin 3.3 3.2-4.8 g/dL POC Glucose 166 H 70-106 mg/dl Influenza Type A Antigen Negative Negative Influenza Type B Antigen Negative Negative SARS-CoV-2 Antigen (Rapid) Negative NEGATIVE Lactic Acid Level 1.4 0.4-2.0 mmol/L Troponin I High Sensitivity 89 *H </=54 ng/L Test 05/27/24 06:20 05/27/24 06:03 05/27/24 03:20 Range/Units B-Type Natriuretic Peptide 101.66 0-100 pg/mL Triglycerides Level 178 H < 150 mg/dL Cholesterol Level 161 < 200 mg/dL LDL Cholesterol 101 H < 100 mg/dL HDL Cholesterol 30 L 40-59 mg/dL Thyroid Stimulating Hormone (TSH) 2.33 0.55-4.78 uIU/mL Urine Color Red H Yellow Urine Clarity Cloudy H Clear Urine pH 5.5 5.0-9.0 Urine Specific [place] 1.019 1.001-1.035 Urine Protein 2+ H Negative Urine Ketones Negative Negative Urine Blood 3+ H Negative /uL Urine Nitrite Negative Negative Urine Bilirubin Negative Negative Urine Urobilinogen Normal Negative mg/dL Urine Leukocyte Esterase 3+ Negative /uL Urine RBC 2110 0 - 3 /hpf Urine WBC 2576 0 - 3 /hpf Urine WBC Clumps Present None Seen /hpf Urine Squamous Epithelial Cells None seen <5 /hpf Urine Bacteria Many H None Seen /hpf Urine Glucose Trace Normal mg/dL Urine Opiates Screen Neg NEGATIVE Urine Fentanyl Screen Neg NEGATIVE Urine Barbiturates Screen Neg NEGATIVE Urine Phencyclidine Screen Neg NEGATIVE Urine Amphetamines Screen Neg NEGATIVE Urine Benzodiazepines Screen Neg NEGATIVE Urine Cocaine Screen Neg NEGATIVE Urine Cannabinoids Screen Neg NEGATIVE Hemoglobin A1c 9.2 H <5.7 % A1C Microbiology Date/Time Source Procedure Growth Status 05/27/24 06:25 Blood Blood Culture - Preliminary NO GROWTH AFTER 48 HOURS OF INCUBATION. Resulted Assessment Acute on chronic hypoxic respiratory failure. PNA. CAD s/p CABG and BRAULIO. COPD. Type 2 [place] 2/2 PNA CKD 3. Anemia chronic disease. Chronic diastolic heart failure. Plan/Recommendation I agree with your ongoing assessment and care of plan. Telemetry reviewed. Echocardiogram. Amlodipine. Aspirin, Lipitor, Metoprolol. IV antibiotics as ordered. DVT prophylactics. Additional plan as per the hospital course. A total of 45 minutes was spent reviewing the patient record, examining the patient, making a diagnostic and therapeutic plan, discussing this plan with medical personnel, following up on diagnostic studies and following the patient for clinical stability excluding any and all procedures. At least 50% of this time was spent in direct, [id number] contact. Plan discussed with: Patient ANDREW CROFT MD May 29, 2024 20:03
[2024-05-30] VITALS (12 sets, daily range): BP systolic 100–138; BP diastolic 60–81; PULSE 84–97; RESP 16–20; TEMP 97.6–98.5; O2SAT 93–100
[2024-05-30 07:41] LABS: Basophils # (auto) 0 10 ^3/uL (0-0.2); Basophils % (auto) 0.2 % (0.0-2.0); Eosinophils # (auto) 0.1 10 ^3/uL (0-0.8); Hematocrit 41.3 % (41.0-53.0); Lymphocytes # (auto) 2.4 10 ^3/uL (0.4-5.4); Lymphocytes % (auto) 16.2 % (10.0-50.0); Mean Corpuscular Hemoglobin 31.2 pg (28.0-32.0); Mean Corpuscular Hgb Conc. 33.8 g/dL (32.0-36.0); Mean Corpuscular Volume 92.1 fL (80.0-100.0); Monocytes # (auto) 1.3 10 ^3/uL (0-1.3); Monocytes % (auto) 8.9 % (0.0-12.0); Neutrophils # (auto) 11.1 10 ^3/uL (1.6-8.6); Neutrophils % (auto) 73.7 % (37.0-80.0); Nucleated Red Blood Cells % 0.1 %; Platelet Count (auto) 303 10^3/uL (140-450); Red Blood Cells 4.48 10^6/uL (4.5-5.90); Red Cell Distribution Width 12.7 % (11.8-14.3)
[2024-05-30 07:45] LABS: Chloride 101 mmol/L (98-107); Sodium 136 mmol/L (136-145)
[2024-05-30 07:46] LABS: Anion Gap 9 (5-15); Carbon Dioxide 26 mmol/L (20-31); Potassium 3.1 mmol/L (3.5-5.1)
[2024-05-30 07:47] LABS: Calcium 8.4 mg/dL (8.7-10.4)
[2024-05-30 07:51] LABS: BUN/Creatinine Ratio 13.7 (10.0-20.0); Blood Urea Nitrogen 18 mg/dL (9-23); Glucose 228 mg/dL (74-106)
--- NOTE | 2024-05-30 10:31 | ECG ---
[facility] Test Date: 2024-05-28 Test Time: 19:35:49 Pat Name: ENMA BANERJEE Department: Respiratoy Room: 0223T A Gender: M Field Supervisor: : [id number] Requested By: LORRIE BHAT Order Number: [id number] Reading MD: Abdulkadir Montenegro Measurements Intervals [place] Rate: 86 P: 55 LA: 131 QRS: -77 QRSD: 129 T: 31 QT: 452 QTc: 541 Interpretive Statements Sinus rhythm Supraventricular bigeminy RBBB and LAFB Baseline wander in lead(s) V4 Electronically Signed On 05-31-2024 12:10:49 PST by Abdulkadir Montenegro Please click the below link to view image of tracing.
--- NOTE | 2024-05-30 20:51 | DVHPN2 ---
Assessment/Plan Assessment/Plan Progress note Subjective 88 M with CAD s/p CABG (years) and BRAULIO (months) CKD admitted after transfer from [place] for NSTEMI. Seen by me today during rounds clinically improving. PT eval, pain management. will call family for dispo planning. Objective Physical exam alert oriented x3 on nasal canula s1 s2 RRR systolic murmur clear abdomen soft nontender trace LE edema Assessment and plan acute on chronic hypoxic respiratory failure PNA GN vs GP? viral? CAD s/p CABG and BRAULIO not sure when Possible baseline mild dementia COPD e on home o2 type 2 [place] 2/2 PNA CKD 3 anemia chronic disease chronic diastolic heart failure PH? oral trush? pe rulewd out keep spo2> 92% albuterol ipatropium prednisone ceft azithro atarax for anxiety send hiv nystatin swish and swallow amlodipine pt eval Diet cardiac DVT ppx lovenox Plan discussed with: Patient My Orders Orders - MELE GALICIA MD Procedure Category Date Status Time Hydroxyzine Oral PHA 05/30/24 Logged (Vistaril Oral) 21:00 Sodium Chloride 0.9% PHA 05/30/24 Logged 21:00 Acetaminophen Tablet PHA 05/30/24 Logged (Tylenol Tablet) 22:00 Tramadol Hcl (Ultram) PHA 05/30/24 Logged 21:00 Potassium Effervesent PHA 05/30/24 Logged Tab (Klor-Con/Ef) 21:00 Pt Request For Service PT 05/30/24 Transmitted 20:49 Basic Metabolic Panel LAB 05/31/24 Verified 04:00 Date of Service: May 30, 2024 Billing Provider: MELE GALICIA MD Common Visit Codes: [id number] INP/OBS CARE(MOD) MELE GALICIA MD May 30, 2024 20:51
[2024-05-30] MEDS ORDERED: traMADol HCL 50 MG TAB PO PRN (21:00)
[2024-05-30] MEDS: SODIUM CHLORIDE 0.9% 500 ML IV ONE (22:14)
[2024-05-30] MEDS: POTASSIUM EFFERVESENT TAB 25 MEQ PO ONE (22:14)
[2024-05-30] MEDS: ACETAMINOPHEN 325 MG TAB PO SCH (22:15)
--- NOTE | 2024-05-30 23:00 | DVHPN2 ---
Progress Note - Dictate Date Seen: May 30, 2024 Medical Necessity Reason Pt with a Central, PICC or Fol: No Subjective Patient was seen and evaluated in follow up. No overnight events. Patient reports feeling better todat. Patient is pending PT eval. WBC15, K 3.1, [facility] 1.31, CA 8.4. Telemetry reviewed. vital signs Vital Sign Date Time Temp Pulse Resp B/P (MAP) Pulse Ox O2 Delivery O2 Flow Rate FiO2 05/30/24 22:53 100 Nasal Cannula* 2 28 05/30/24 21:00 97.6 88 17 126/77 (93) 97.6 Total Intake and Output 05/29/24 05/29/24 05/30/24 15:00 23:00 07:00 Intake Total 290 ml 1140 ml 300 ml Output Total 600 ml 1200 ml Balance 290 ml 540 ml -900 ml medications Current Medications Medications Dose Ordered Sig/Ok Route Start Time Stop Time Status Last Admin Dose Admin Aspirin 81 mg DAILY PO 05/27/24 14:25 05/30/24 10:12 81 MG Atorvastatin Calcium 40 mg HS PO 05/27/24 22:00 05/30/24 22:15 40 MG Ondansetron HCl 4 mg Q4HP PRN IV 05/27/24 14:15 05/28/24 10:37 4 MG Diagnostic Test (Pha) 1 strip ACHS 05/27/24 17:00 05/30/24 22:15 1 STRIP Insulin Human Regular ACHS SC 05/27/24 17:00 05/30/24 22:37 4 UNITS Dextrose 50 ml UD PRN IV 05/27/24 14:15 Ceftriaxone Sodium 50 ml @ 100 mls/hr DAILY@09 IV 05/28/24 09:00 05/30/24 10:11 100 MLS/HR Enoxaparin Sodium 40 mg DAILY SC 05/29/24 10:00 05/30/24 10:14 40 MG Ipratropium [place] 0.5 mg Q2HPRN PRN NEB 05/28/24 15:45 Albuterol 2.5 mg Q2HPRN PRN NEB 05/28/24 15:45 Prednisone 40 mg DAILY PO 05/29/24 10:00 05/30/24 10:13 40 MG Amlodipine Besylate 10 mg DAILY PO 05/29/24 10:00 05/30/24 10:13 10 MG Metoprolol Tartrate 5 mg Q6HR IV 05/29/24 12:00 05/30/24 11:27 5 MG Nystatin 5 ml QID MT 05/29/24 22:00 05/30/24 22:15 5 ML Hydroxyzine Pamoate 25 mg Q6HP PRN PO 05/30/24 21:00 Acetaminophen 650 mg Q8HR PO 05/30/24 22:00 05/30/24 22:15 650 MG Tramadol HCl 50 mg Q6HP PRN PO 05/30/24 21:00 objective GENERAL: Awake, alert, oriented. LUNGS: Clear. CARDIOVASCULAR: Heart sounds are good. ABDOMEN: Soft. laboratory and microbiology Laboratory Tests 05/30/24 06:35 Test 05/30/24 06:35 Range/Units Serum Glucose 228 H 74-106 mg/dL Problem List Acute on chronic hypoxic respiratory failure. PNA. CAD s/p CABG and BRAULIO. COPD. Type 2 [place] 2/2 PNA CKD 3. Anemia chronic disease. Chronic diastolic heart failure. Assessment/Plan Continued all current supportive medical care. Echocardiogram. Amlodipine. Aspirin, Lipitor, Metoprolol. IV antibiotics as ordered. DVT prophylactics. Additional plan as per the hospital course. Dietary Evaluation Review Comments: 1) Add CCHO 60g restriction to cardiac diet order. 2) Recommend ACCOUNTING DIRECTOR consult d/t difficulty swallowing. 3) Encourage good appetite. If PO intake remains <50%, initiate Glucerna bid, pending ACCOUNTING DIRECTOR approval. 4) Continue to monitor skin breakdown. Matthew is NOT appropriate d/t patient's hx of CKD III. Expected Outcomes/Goals: 1) appetite and labs to improve 2) skin integrity to improve 3) f/u in 3-5 days Plan discussed with: Patient ANDREW CROFT MD May 30, 2024 23:00
[2024-05-31] VITALS (11 sets, daily range): BP systolic 116–127; BP diastolic 69–93; PULSE 55–88; RESP 17–20; TEMP 97.6–97.8; O2SAT 97–100
[2024-05-31 08:17] LABS: Anion Gap 9 (5-15); Carbon Dioxide 25 mmol/L (20-31); Chloride 103 mmol/L (98-107); Sodium 137 mmol/L (136-145)
[2024-05-31 08:23] LABS: Blood Urea Nitrogen 19 mg/dL (9-23)
[2024-05-31 08:37] LABS: Calcium 7.7 mg/dL (8.7-10.4); Glucose 191 mg/dL (74-106)
[2024-05-31] MEDS: POTASSIUM EFFERVESENT TAB 25 MEQ PO ONE (11:00)
[2024-05-31] MEDS: METOPROLOL SUCCINATE XL 50 MG TAB PO SCH (12:17)
--- NOTE | 2024-05-31 12:39 | DVHPN2 ---
Assessment/Plan Assessment/Plan Progress note Subjective 88 M with CAD s/p CABG (years) and BRAULIO (months) CKD admitted after transfer from [place] for NSTEMI. Seen by me today during rounds for SNF. need 2 physician Objective Physical exam alert oriented x3 on nasal canula s1 s2 RRR systolic murmur clear abdomen soft nontender trace LE edema Assessment and plan acute on chronic hypoxic respiratory failure PNA GN vs GP? viral? CAD s/p CABG and BRAULIO not sure when Possible baseline mild dementia COPD e on home o2 type 2 [place] 2/2 PNA CKD 3 anemia chronic disease chronic diastolic heart failure PH? oral trush? pe rulewd out keep spo2> 92% albuterol ipatropium prednisone ceft azithro atarax for anxiety send hiv nystatin swish and swallow amlodipine pt eval Diet cardiac DVT ppx lovenox Plan discussed with: Patient My Orders Orders - MELE GALICIA MD Procedure Category Date Status Time Hydroxyzine Oral PHA 05/30/24 In Process (Vistaril Oral) 21:00 Acetaminophen Tablet PHA 05/30/24 In Process (Tylenol Tablet) 22:00 Tramadol Hcl (Ultram) PHA 05/30/24 In Process 21:00 Pt Request For Service PT 05/30/24 Logged 20:49 Metoprolol Xl PHA 05/31/24 In Process Succinate (Toprol Xl) 10:00 Magnesium LAB 06/01/24 Verified 04:00 Phosphorus LAB 06/01/24 Verified 04:00 Basic Metabolic Panel LAB 06/01/24 Verified 04:00 Complete Blood Count LAB 06/01/24 Verified 04:00 * General Medical Practitioner CONS 05/31/24 Transmitted Consult Date of Service: May 31, 2024 Billing Provider: MELE GALICIA MD Common Visit Codes: [id number] INP/OBS CARE(MOD) MELE GALICIA MD May 31, 2024 12:39
[2024-05-31] MEDS: POTASSIUM CHL 20 Meq TABLET PO ONE (15:04)
--- NOTE | 2024-05-31 21:33 | DVHPN2 ---
Progress Note - Dictate Date Seen: May 31, 2024 Medical Necessity Reason Pt with a Central, PICC or Fol: No Subjective Patient was seen and evaluated in follow up. Patient is on 2 LPM NC. Echocardiogram shows an EF of 65%. K 3, CA 7.7. Awaiting SNF placement. Telemetry reviewed. vital signs Vital Sign Date Time Temp Pulse Resp B/P (MAP) Pulse Ox O2 Delivery O2 Flow Rate FiO2 05/31/24 20:32 88 18 118/70 99 21 05/31/24 20:00 Nasal Cannula* 2 05/31/24 17:30 97.7 97.7 Total Intake and Output 05/30/24 05/30/24 05/31/24 15:00 23:00 07:00 Intake Total 170 ml 205 ml 750 ml Output Total 200 ml 150 ml 175 ml Balance -30 ml 55 ml 575 ml medications Current Medications Medications Dose Ordered Sig/Ok Route Start Time Stop Time Status Last Admin Dose Admin Aspirin 81 mg DAILY PO 05/27/24 14:25 05/31/24 08:35 81 MG Atorvastatin Calcium 40 mg HS PO 05/27/24 22:00 05/31/24 21:19 40 MG Ondansetron HCl 4 mg Q4HP PRN IV 05/27/24 14:15 05/28/24 10:37 4 MG Diagnostic Test (Pha) 1 strip ACHS 05/27/24 17:00 05/31/24 21:15 1 STRIP Insulin Human Regular ACHS SC 05/27/24 17:00 05/31/24 21:18 8 UNITS Dextrose 50 ml UD PRN IV 05/27/24 14:15 Ceftriaxone Sodium 50 ml @ 100 mls/hr DAILY@09 IV 05/28/24 09:00 05/31/24 08:34 100 MLS/HR Enoxaparin Sodium 40 mg DAILY SC 05/29/24 10:00 05/31/24 08:35 40 MG Ipratropium [place] 0.5 mg Q2HPRN PRN NEB 05/28/24 15:45 Albuterol 2.5 mg Q2HPRN PRN NEB 05/28/24 15:45 Prednisone 40 mg DAILY PO 05/29/24 10:00 05/31/24 08:35 40 MG Amlodipine Besylate 10 mg DAILY PO 05/29/24 10:00 05/31/24 08:36 10 MG Nystatin 5 ml QID MT 05/29/24 22:00 05/31/24 21:19 5 ML Hydroxyzine Pamoate 25 mg Q6HP PRN PO 05/30/24 21:00 Acetaminophen 650 mg Q8HR PO 05/30/24 22:00 05/31/24 21:19 650 MG Tramadol HCl 50 mg Q6HP PRN PO 05/30/24 21:00 Metoprolol Succinate 50 mg DAILY PO 05/31/24 10:00 05/31/24 12:17 50 MG objective GENERAL: Awake, alert, oriented. LUNGS: Clear. CARDIOVASCULAR: Heart sounds are good. ABDOMEN: Soft. laboratory and microbiology Laboratory Tests 05/31/24 07:27 05/30/24 06:35 Test 05/31/24 07:27 Range/Units Serum Glucose 191 H 74-106 mg/dL Problem List Acute on chronic hypoxic respiratory failure. PNA. CAD s/p CABG and BRAULIO. COPD. Type 2 [place] 2/2 PNA CKD 3. Anemia chronic disease. Chronic diastolic heart failure. Assessment/Plan Continued all current supportive medical care. Echocardiogram. Amlodipine. Aspirin, Lipitor, Metoprolol. IV antibiotics as ordered. DVT prophylactics. Additional plan as per the hospital course. Dietary Evaluation Review Comments: 1) Add CCHO 60g restriction to cardiac diet order. 2) Recommend PANEL SAW OPERATOR consult d/t difficulty swallowing. 3) Encourage good appetite. If PO intake remains <50%, initiate Glucerna bid, pending PANEL SAW OPERATOR approval. 4) Continue to monitor skin breakdown. Matthew is NOT appropriate d/t patient's hx of CKD III. Expected Outcomes/Goals: 1) appetite and labs to improve 2) skin integrity to improve 3) f/u in 3-5 days Plan discussed with: Patient ANDREW CROFT MD May 31, 2024 21:33
[2024-06-01] VITALS (9 sets, daily range): BP systolic 102–127; BP diastolic 57–71; PULSE 61–73; RESP 9–20; TEMP 97.5–98.1; O2SAT 95–99
[2024-06-01 10:09] LABS: Basophils # (auto) 0 10 ^3/uL (0-0.2); Basophils % (auto) 0.1 % (0.0-2.0); Eosinophils # (auto) 0.1 10 ^3/uL (0-0.8); Eosinophils % (auto) 0.7 % (0.0-7.0); Hematocrit 38.7 % (41.0-53.0); Hemoglobin 12.9 g/dL (13.5-17.5); Lymphocytes # (auto) 2.6 10 ^3/uL (0.4-5.4); Lymphocytes % (auto) 16.6 % (10.0-50.0); Mean Corpuscular Hemoglobin 30.7 pg (28.0-32.0); Mean Corpuscular Hgb Conc. 33.3 g/dL (32.0-36.0); Mean Corpuscular Volume 92.2 fL (80.0-100.0); Monocytes # (auto) 1.4 10 ^3/uL (0-1.3); Neutrophils # (auto) 11.4 10 ^3/uL (1.6-8.6); Neutrophils % (auto) 73.6 % (37.0-80.0); Platelet Count (auto) 314 10^3/uL (140-450); Red Blood Cells 4.19 10^6/uL (4.5-5.90); Red Cell Distribution Width 12.5 % (11.8-14.3); White Blood Cell 15.4 10^3/uL (4.4-10.8)
[2024-06-01 10:27] LABS: Chloride 101 mmol/L (98-107); Potassium 3.6 mmol/L (3.5-5.1)
[2024-06-01 10:28] LABS: Anion Gap 5 (5-15); Carbon Dioxide 27 mmol/L (20-31)
[2024-06-01 10:33] LABS: Blood Urea Nitrogen 15 mg/dL (9-23); Calcium 8.4 mg/dL (8.7-10.4); Glucose 205 mg/dL (74-106); Sodium 133 mmol/L (136-145)
[2024-06-01 10:35] LABS: Magnesium 1.5 mg/dL (1.6-2.6)
[2024-06-01 10:39] LABS: BUN/Creatinine Ratio 12.1 (10.0-20.0)
[2024-06-01 10:40] LABS: Phosphorus 1.8 mg/dL (2.4-5.1)
[2024-06-01] MEDS: hydrOXYzine 25 MG TAB or CAP PO PRN (14:10)
--- NOTE | 2024-06-01 15:48 | DVHPN2 ---
Assessment/Plan Assessment/Plan Progress note Subjective 88 M with CAD s/p CABG (years) and BRAULIO (months) CKD admitted after transfer from [place] for NSTEMI. Seen by me today during rounds SS able to reach via [facility] dept. will attempt to discuss with tomorrow. Objective Physical exam alert oriented x3 on nasal canula s1 s2 RRR systolic murmur clear abdomen soft nontender trace LE edema Assessment and plan acute on chronic hypoxic respiratory failure PNA GN vs GP? viral? CAD s/p CABG and BRAULIO not sure when Possible baseline mild dementia COPD e on home o2 type 2 [place] 2/2 PNA CKD 3 anemia chronic disease chronic diastolic heart failure PH? oral trush? pe rulewd out keep spo2> 92% albuterol ipatropium prednisone ceft azithro atarax for anxiety send hiv nystatin swish and swallow amlodipine pt eval Diet cardiac DVT ppx lovenox Plan discussed with: Other Date of Service: Jun 01, 2024 Billing Provider: MELE GALICIA MD Common Visit Codes: [id number] INP/OBS CARE(MOD) MELE GALICIA MD Jun 01, 2024 15:48
[2024-06-01] MEDS: SODIUM PHOSPHATES 40 MEQ in D5W 5% 250 ML IV ONE (16:00)
[2024-06-01] MEDS: MAGNESIUM SULFATE 1GM/100ML 100 ML IV SCH (16:10)
--- NOTE | 2024-06-01 18:50 | DVHPN2 ---
Progress Note - Dictate Date Seen: Jun 01, 2024 Medical Necessity Reason Pt with a Central, PICC or Fol: No Subjective Patient was seen and evaluated in follow up. Sitter is at patient's bedside. Patient is on 2 LPM NC. WBC 15.4, GLUC 211, CA 8.4. Patients electrolytes were replaced. Telemetry reviewed. vital signs Vital Sign Date Time Temp Pulse Resp B/P (MAP) Pulse Ox O2 Delivery O2 Flow Rate FiO2 06/01/24 10:12 96 Nasal Cannula* 2 28 06/01/24 08:23 120/71 06/01/24 08:22 69 06/01/24 08:00 18 06/01/24 05:00 97.8 97.8 Total Intake and Output 05/31/24 05/31/24 06/01/24 15:00 23:00 07:00 Intake Total 50 ml 400 ml 300 ml Output Total 500 ml 500 ml Balance 50 ml -100 ml -200 ml medications Current Medications Medications Dose Ordered Sig/Ok Route Start Time Stop Time Status Last Admin Dose Admin Aspirin 81 mg DAILY PO 05/27/24 14:25 06/01/24 08:20 81 MG Atorvastatin Calcium 40 mg HS PO 05/27/24 22:00 05/31/24 21:19 40 MG Ondansetron HCl 4 mg Q4HP PRN IV 05/27/24 14:15 06/01/24 06:24 4 MG Diagnostic Test (Pha) 1 strip ACHS 05/27/24 17:00 06/01/24 11:50 1 STRIP Insulin Human Regular ACHS SC 05/27/24 17:00 06/01/24 11:55 4 UNITS Dextrose 50 ml UD PRN IV 05/27/24 14:15 Ceftriaxone Sodium 50 ml @ 100 mls/hr DAILY@09 IV 05/28/24 09:00 06/01/24 08:18 100 MLS/HR Enoxaparin Sodium 40 mg DAILY SC 05/29/24 10:00 06/01/24 08:20 40 MG Ipratropium [place] 0.5 mg Q2HPRN PRN NEB 05/28/24 15:45 Cancel Albuterol 2.5 mg Q2HPRN PRN NEB 05/28/24 15:45 Cancel Prednisone 40 mg DAILY PO 05/29/24 10:00 06/01/24 08:20 40 MG Amlodipine Besylate 10 mg DAILY PO 05/29/24 10:00 06/01/24 08:23 10 MG Nystatin 5 ml QID MT 05/29/24 22:00 06/01/24 11:50 5 ML Hydroxyzine Pamoate 25 mg Q6HP PRN PO 05/30/24 21:00 Acetaminophen 650 mg Q8HR PO 05/30/24 22:00 05/31/24 21:19 650 MG Tramadol HCl 50 mg Q6HP PRN PO 05/30/24 21:00 Metoprolol Succinate 50 mg DAILY PO 05/31/24 10:00 06/01/24 08:22 50 MG objective GENERAL: Awake, alert, oriented. LUNGS: Clear. CARDIOVASCULAR: Heart sounds are good. ABDOMEN: Soft. laboratory and microbiology Laboratory Tests 06/01/24 09:39 Test 06/01/24 09:39 Range/Units Serum Glucose 205 H 74-106 mg/dL Problem List Acute on chronic hypoxic respiratory failure. PNA. CAD s/p CABG and BRAULIO. COPD. Type [address] 2/2 PNA CKD 3. Anemia chronic disease. Chronic diastolic heart failure. Assessment/Plan Continued all current supportive medical care. Amlodipine. Aspirin, Lipitor, Metoprolol. IV antibiotics as ordered. DVT prophylactics. Additional plan as per the hospital course. Dietary Evaluation Review Comments: 1) Add CCHO 60g restriction to cardiac diet order. 2) Recommend PIE DOUGH ROLLER consult d/t difficulty swallowing. 3) Encourage good appetite. If PO intake remains <50%, initiate Glucerna bid, pending PIE DOUGH ROLLER approval. 4) Continue to monitor skin breakdown. Matthew is NOT appropriate d/t patient's hx of CKD III. Expected Outcomes/Goals: 1) appetite and labs to improve 2) skin integrity to improve 3) f/u in 3-5 days Plan discussed with: Patient ANDREW CROFT MD Jun 01, 2024 13:44
[2024-06-02 05:00] VITALS: BP 120/65; PULSE 68; RESP 17; TEMP 97.5; O2SAT 97
[2024-06-02 10:46] LABS: Chloride 102 mmol/L (98-107)
[2024-06-02 10:47] LABS: Anion Gap 7 (5-15); Carbon Dioxide 25 mmol/L (20-31)
[2024-06-02 10:52] LABS: BUN/Creatinine Ratio 12.9 (10.0-20.0); Blood Urea Nitrogen 16 mg/dL (9-23)
[2024-06-02 10:53] LABS: Magnesium 1.7 mg/dL (1.6-2.6)
[2024-06-02 10:54] LABS: Phosphorus 3.4 mg/dL (2.4-5.1)
[2024-06-02 10:55] LABS: Calcium 8.1 mg/dL (8.7-10.4); Glucose 178 mg/dL (74-106); Potassium 3.4 mmol/L (3.5-5.1); Sodium 134 mmol/L (136-145)
[2024-06-02] MEDS ORDERED: ASPI-325 PO (12:12)
[2024-06-02] MEDS ORDERED: AML5T PO (12:12)
[2024-06-02] MEDS ORDERED: METO-6 PO (12:12)
[2024-06-02] MEDS ORDERED: PRED20TA2 PO (12:12)
[2024-06-02] MEDS ORDERED: ATOR20TA50 PO (12:12)
[2024-06-02 12:24] VITALS: BP 138/68; PULSE 68; TEMP 36.4
--- NOTE | 2024-06-02 14:06 | DVHDS2 ---
Discharge Summary Date of Admission May 27, 2024 at 14:11 Date of Discharge: Jun 02, 2024 Labs/Diagnostic Data: Laboratory Results Test 06/02/24 09:50 06/02/24 05:48 06/01/24 09:39 05/30/24 07:50 Sodium Level 134 mmol/L (136-145) Potassium Level 3.4 mmol/L (3.5-5.1) Chloride Level 102 mmol/L (98-107) Carbon Dioxide Level 25 mmol/L (20-31) Anion Gap 7 (5-15) Blood Urea Nitrogen 16 mg/dL (9-23) Creatinine 1.24 mg/dL (0.700-1.30) Glomerular Filtration Rate Calc 57 mL/min (>90) BUN/Creatinine Ratio 12.9 (10.0-20.0) Serum Glucose 178 mg/dL (74-106) Calcium Level 8.1 mg/dL (8.7-10.4) Phosphorus Level 3.4 mg/dL (2.4-5.1) Magnesium Level 1.7 mg/dL (1.6-2.6) POC Glucose 208 mg/dl (70-106) White Blood Count 15.4 10^3/uL (4.4-10.8) Red Blood Count 4.19 10^6/uL (4.5-5.90) Hemoglobin 12.9 g/dL (13.5-17.5) Hematocrit 38.7 % (41.0-53.0) Mean Corpuscular Volume 92.2 fL (80.0-100.0) Mean Corpuscular Hemoglobin 30.7 pg (28.0-32.0) Mean Corpuscular Hemoglobin Concent 33.3 g/dL (32.0-36.0) Red Cell Distribution Width 12.5 % (11.8-14.3) Platelet Count 314 10^3/uL (140-450) Mean Platelet Volume 7.5 fL (6.9-10.8) Neutrophils (%) (Auto) 73.6 % (37.0-80.0) Lymphocytes (%) (Auto) 16.6 % (10.0-50.0) Monocytes (%) (Auto) 9.0 % (0.0-12.0) Eosinophils (%) (Auto) 0.7 % (0.0-7.0) Basophils (%) (Auto) 0.1 % (0.0-2.0) Neutrophils # (Auto) 11.4 10 ^3/uL (1.6-8.6) Lymphocytes # (Auto) 2.6 10 ^3/uL (0.4-5.4) Monocytes # (Auto) 1.4 10 ^3/uL (0-1.3) Eosinophils # (Auto) 0.1 10 ^3/uL (0-0.8) Basophils # (Auto) 0 10 ^3/uL (0-0.2) Nucleated Red Blood Cells 0.0 % HIV (1&2) Antibody Negative (Negative) Test 05/29/24 10:30 05/28/24 13:36 05/27/24 09:55 05/27/24 06:20 Total Bilirubin 0.8 mg/dL (0.2-1.0) Aspartate Amino Transferase (AST) 14 U/L (13-40) Alanine Aminotransferase (ALT) < 9 U/L (7-40) Alkaline Phosphatase 93 U/L (46-116) Total Protein 6.5 g/dL (5.7-8.2) Albumin 3.3 g/dL (3.2-4.8) Influenza Type A Antigen Negative (Negative) Influenza Type B Antigen Negative (Negative) SARS-CoV-2 Antigen (Rapid) Negative (NEGATIVE) Lactic Acid Level 1.4 mmol/L (0.4-2.0) Troponin I High Sensitivity 89 ng/L (</=54) B-Type Natriuretic Peptide 101.66 pg/mL (0-100) Triglycerides Level 178 mg/dL (< 150) Cholesterol Level 161 mg/dL (< 200) LDL Cholesterol 101 mg/dL (< 100) HDL Cholesterol 30 mg/dL (40-59) Thyroid Stimulating Hormone (TSH) 2.33 uIU/mL (0.55-4.78) Test 05/27/24 06:03 05/27/24 03:20 Urine Color Red (Yellow) Urine Clarity Cloudy (Clear) Urine pH 5.5 (5.0-9.0) Urine Specific [place] 1.019 (1.001-1.035) Urine Protein 2+ (Negative) Urine Ketones Negative (Negative) Urine Blood 3+ /uL (Negative) Urine Nitrite Negative (Negative) Urine Bilirubin Negative (Negative) Urine Urobilinogen Normal mg/dL (Negative) Urine Leukocyte Esterase 3+ /uL (Negative) Urine RBC 2110 /hpf (0 - 3) Urine WBC 2576 /hpf (0 - 3) Urine WBC Clumps Present /hpf (None Seen) Urine Squamous Epithelial Cells None seen /hpf (<5) Urine Bacteria Many /hpf (None Seen) Urine Glucose Trace mg/dL (Normal) Urine Opiates Screen Neg (NEGATIVE) Urine Fentanyl Screen Neg (NEGATIVE) Urine Barbiturates Screen Neg (NEGATIVE) Urine Phencyclidine Screen Neg (NEGATIVE) Urine Amphetamines Screen Neg (NEGATIVE) Urine Benzodiazepines Screen Neg (NEGATIVE) Urine Cocaine Screen Neg (NEGATIVE) Urine Cannabinoids Screen Neg (NEGATIVE) Hemoglobin A1c 9.2 % A1C (<5.7) Other Laboratory Tests 06/02/24 09:50 06/01/24 09:39 Brief Hx & Hospital Course: 88 M with CAD s/p CABG (years) and BRAULIO (months) CKD admitted after transfer from [place] for NSTEMI. NSTEMI likely type 2, hwoever patient with increased WOB and O2 recs, likely COPDe. On home O2. Covered with abx, given hydration. Worked with PT for NSF but patient refused. was informed, decision to discharge with home PT as was agreed by patient and . Condition at Discharge: Good Final Diagnosis/Problems List COPD E PNA Discharge Disposition: Home with Health Services Discharge Instruct/Medications Diet: Consistent carbohydrate, Cardiac 2g Na,low cholest Activity: No Restrictions, As Tolerated Follow Up/Referral: PCP 39 Discharge Statement: "Patient was advised to return to the ER or call 911 if any headaches, dizziness, shortness of breath, chest pain, abdominal pain, bleeding, fevers, or worsening of medical condition. Patient was counseled about treatment plan, medications, possible side effects, patientverbalized understanding. All questions were answered to the best of my ability. This discharge took greater then 30 minutes in planning, reviewing documentation, counseling the patient, and discussing with other team members." ASSESSMENT ASSESSMENT Assessment acute on chronic hypoxic respiratory failure PNA GN vs GP? viral? CAD s/p CABG and BRAULIO not sure when Possible baseline mild dementia COPD e on home o2 with exacerbation type 2 [place] 2/2 PNA CKD 3 anemia chronic disease chronic diastolic heart failure PH? oral trush? Date of Service: Jun 02, 2024 Billing Provider: MELE GALICIA MD Common Visit Codes: 68757-MPI/OBS DISCH DAY >30min MELE GALICIA MD Jun 02, 2024 14:06
--- NOTE | 2024-06-02 23:23 | DVHPN2 ---
Progress Note - Dictate Date Seen: Jun 02, 2024 Medical Necessity Reason Pt with a Central, PICC or Fol: No Subjective Patient was seen and evaluated in follow up. Patient has no new complaints at this time. Patient denies any cardiac symptoms. Patient is cardiac stable for discharge. Telemetry reviewed. vital signs Vital Sign Date Time Temp Pulse Resp B/P (MAP) Pulse Ox O2 Delivery O2 Flow Rate FiO2 06/02/24 11:20 68 138/68 06/02/24 05:00 97.5 17 97 97.5 06/01/24 20:00 Nasal Cannula* 2 28 Total Intake and Output 06/01/24 06/01/24 06/02/24 15:00 23:00 07:00 Intake Total 100 ml 350 ml 610 ml Output Total 500 ml 450 ml Balance 100 ml -150 ml 160 ml medications Current Medications Medications Dose Ordered Sig/Ok Route Start Time Stop Time Status Last Admin Dose Admin Aspirin 81 mg DAILY PO 05/27/24 14:25 06/02/24 11:20 81 MG Atorvastatin Calcium 40 mg HS PO 05/27/24 22:00 06/01/24 22:38 40 MG Ondansetron HCl 4 mg Q4HP PRN IV 05/27/24 14:15 06/01/24 06:24 4 MG Diagnostic Test (Pha) 1 strip ACHS 05/27/24 17:00 06/02/24 06:19 1 STRIP Insulin Human Regular ACHS SC 05/27/24 17:00 06/02/24 06:19 4 UNITS Dextrose 50 ml UD PRN IV 05/27/24 14:15 Ceftriaxone Sodium 50 ml @ 100 mls/hr DAILY@09 IV 05/28/24 09:00 06/01/24 08:18 100 MLS/HR Enoxaparin Sodium 40 mg DAILY SC 05/29/24 10:00 06/01/24 08:20 40 MG Ipratropium [place] 0.5 mg Q2HPRN PRN NEB 05/28/24 15:45 Cancel Albuterol 2.5 mg Q2HPRN PRN NEB 05/28/24 15:45 Cancel Prednisone 40 mg DAILY PO 05/29/24 10:00 06/02/24 11:21 40 MG Amlodipine Besylate 10 mg DAILY PO 05/29/24 10:00 06/02/24 11:20 10 MG Nystatin 5 ml QID MT 05/29/24 22:00 06/02/24 06:16 5 ML Hydroxyzine [place]amo[place] 25 mg Q6HP PRN PO 05/30/24 21:00 06/01/24 14:10 25 MG Acetaminophen 650 mg Q8HR PO 05/30/24 22:00 06/02/24 06:16 650 MG Tramadol HCl 50 mg Q6HP PRN PO 05/30/24 21:00 Metoprolol Succinate 50 mg DAILY PO 05/31/24 10:00 06/02/24 11:20 50 MG objective GENERAL: Awake, alert, oriented. LUNGS: Clear. CARDIOVASCULAR: Heart sounds are good. ABDOMEN: Soft. laboratory and microbiology Laboratory Tests 06/02/24 09:50 06/01/24 09:39 Test 06/02/24 09:50 Range/Units Serum Glucose 178 H 74-106 mg/dL Problem List Acute on chronic hypoxic respiratory failure. PNA. CAD s/p CABG and BRAULIO. COPD. Type 2 [place] 2/2 PNA CKD 3. Anemia chronic disease. Chronic diastolic heart failure. Assessment/Plan Continued all current supportive medical care. Amlodipine. Aspirin, Lipitor, Metoprolol. IV antibiotics as ordered. DVT prophylactics. Additional plan as per the hospital course. Dietary Evaluation Review Comments: 1) Add CCHO 60g restriction to cardiac diet order. 2) Recommend DINING SERVICES DIRECTOR consult d/t difficulty swallowing. 3) Encourage good appetite. If PO intake remains <50%, initiate Glucerna bid, pending DINING SERVICES DIRECTOR approval. 4) Continue to monitor skin breakdown. Matthew is NOT appropriate d/t patient's hx of CKD III. Expected Outcomes/Goals: 1) appetite and labs to improve 2) skin integrity to improve 3) f/u in 3-5 days Plan discussed with: Patient ANDREW CROFT MD Jun 02, 2024 12:13
== END 2024-06-02 13:45 | disposition home health service (06) | DRG 177 ==
LOC: EDBD 05:33 → ER 05:33 → TELE 14:11 → TELE-CENTR 05-28 14:24
PROVIDERS: ADMIT Student in an Organized Health Care Education/Training Program; ATTEND Student in an Organized Health Care Education/Training Program
DX: J15.69 Pneumonia due to other Gram-negative bacteria (principal); I21.A1 Myocardial infarction type 2; J96.21 Acute and chronic respiratory failure with hypoxia; I13.0 Hypertensive heart and chronic kidney disease with heart failure and stage 1 through stage 4 chronic kidney disease, or unspecified chronic kidney disease; I50.32 Chronic diastolic (congestive) heart failure; N39.0 Urinary tract infection, site not specified; J44.0 Chronic obstructive pulmonary disease with (acute) lower respiratory infection; J44.1 Chronic obstructive pulmonary disease with (acute) exacerbation; J12.9 Viral pneumonia, unspecified; J15.9 Unspecified bacterial pneumonia; Z20.822 Contact with and (suspected) exposure to COVID-19; E11.22 Type 2 diabetes mellitus with diabetic chronic kidney disease; N18.30 Chronic kidney disease, stage 3 unspecified; F41.9 Anxiety disorder, unspecified; I25.10 Atherosclerotic heart disease of native coronary artery without angina pectoris; F03.A0 Unspecified dementia, mild, without behavioral disturbance, psychotic disturbance, mood disturbance, and anxiety; D63.8 Anemia in other chronic diseases classified elsewhere; Z88.5 Allergy status to narcotic agent; Z86.73 Personal history of transient ischemic attack (TIA), and cerebral infarction without residual deficits; Z95.1 Presence of aortocoronary bypass graft; Z90.49 Acquired absence of other specified parts of digestive tract; Z95.5 Presence of coronary angioplasty implant and graft; Z99.81 Dependence on supplemental oxygen; Z75.1 Person awaiting admission to adequate facility elsewhere
CPT/HCPCS: 36415; 71045; 71250; 71275; 80048; 80053; 80061; 80307; 81001; 82962; 83036; 83605; 83735; 83880; 84100; 84443; 84484; 85025; 86703; 87040; 87081; 87426; 87804; 93005; 93306; 97163; G0378; J1815; J2405; J7060